=== PATIENT | male | born 1995 | race Caucasian/White ===

== ENCOUNTER 2017-05-02 11:32 | Observation (INO) | payer BC ==
[2017-05-02] MEDS ORDERED: Pantoprazole IV* 40 MG IV ONE (11:44)
[2017-05-02] MEDS ORDERED: NS 0.9% 1000 ML* 1,000 ML IV ONE (11:44)
[2017-05-02 12:13] LABS: ABS Basophils 0 10^3/ul (0-0.2); ABS Eosinophils 0 10^3/ul (0-0.6); ABS Lymphocytes 0.4 10^3/ul (1.0-4.8); ABS Neutrophils 12.6 10^3/ul (1.5-7.7); ABS Nucleated RBC 0 10^3/ul; Eosinophil % 0 % (0-6); Hematocrit 51 % (42-52); Hemoglobin 17.9 g/dl (14.0-18.0); Lymphocyte % 3.2 % (25-47); Mean Corpuscular HGB Conc 35 g/dl (31-36); Mean Corpuscular Hemoglobin 29 pg (27-31); Mean Corpuscular Volume 83 fL (80-94); Mean Platelet Volume 9 um3 (7.4-10.4); Nucleated Red Blood Cells % 0; Platelet Count 230 10^3/ul (150-450); Red Blood Count 6.16 10^6/ul (4.0-5.4); Red Cell Distribution Width 13 % (10.5-15)
[2017-05-02 12:22] LABS: INR 1.14 (0.77-1.02)
--- NOTE | 2017-05-02 13:16 | RAD ---
INDICATION: Right upper quadrant pain and vomiting. COMPARISON: There are no prior studies available for comparison. TECHNIQUE: Multiple real-time images of the right upper quadrant were obtained. FINDINGS: The gallbladder appear normal. No gallbladder wall thickening or pericholecystic fluid is present. No intra or extrahepatic ductal distention is present. The common bile duct measured 0.2 cm in diameter. The liver is normal in size without significant focal abnormality. The pancreas is obscured by overlying bowel gas. The right kidney is normal in size without evidence for hydronephrosis. IMPRESSION: NEGATIVE EXAM.
[2017-05-02] MEDS ORDERED: Iohexol 300* (CONTRAST) 10 ML SDV IV ONE (13:25)
[2017-05-02] MEDS ORDERED: NS 0.9% 1000 ML* 1,000 ML BOLUS SCH (13:45)
--- NOTE | 2017-05-02 14:43 | RAD ---
INDICATION: Right upper quadrant, epigastric pain, vomiting coffee-ground. COMPARISON: Comparison is made with a prior right upper quadrant ultrasound from May 02, 2017. TECHNIQUE: A CT scan of the abdomen and pelvis was performed with intravenous and oral contrast following intravenous injection of 133 ml of Omnipaque 300 nonionic contrast. Contiguous axial sections were obtained from the lung bases through the symphysis pubis. Images were reconstructed in the coronal and sagittal planes. FINDINGS: The lung bases are clear. No pleural effusion is present. The liver is normal in size and decreased in attenuation consistent with fatty infiltration. No significant focal hepatic abnormalities are seen. No calcified gallstones are seen. No gallbladder wall thickening is noted. The pancreas appears to be within normal limits. The spleen is mildly enlarged without focal abnormality. The kidneys and adrenal glands are normal in size. No hydronephrosis is seen. No significant focal renal abnormality is seen. The aorta is normal in caliber and demonstrates homogeneous contrast opacification. No significant enlarged retroperitoneal lymph nodes are seen. There is a small hiatal hernia. The stomach, small and large bowel appear nondistended. The appendix is within normal limits. There are few diverticuli within the sigmoid colon. There is no evidence for diverticulitis or colitis. There is fluid present throughout the small bowel suggestive of a diarrheal illness. No free intraperitoneal air or fluid is seen. There is a small oval-shaped sclerotic lesion within the right femoral neck, likely incidental. No other focal osseous abnormalities are seen. IMPRESSION: 1. INCREASED FLUID WITHIN THE SMALL BOWEL SUGGESTIVE OF A DIARRHEAL ILLNESS. 2. HEPATIC STEATOSIS. 3. SMALL HIATAL HERNIA.
[2017-05-02 14:55] LABS: Urine Appearance Clear; Urine Blood 1+ (Negative); Urine Color Yellow; Urine Ketones Negative (Negative); Urine Protein Negative (Negative); Urine Specific Gravity > 1.060 (1.010-1.030); Urine Urobilinogen Negative (Negative)
[2017-05-02] MEDS ORDERED: Pantoprazole IV* 80 MG in NS 0.9% 250 ML* 250 ML IV SCH (15:30)
[2017-05-02] MEDS ORDERED: Acetaminophen TAB* 325 MG PO PRN (15:54)
[2017-05-02] MEDS ORDERED: Midazolam* 1 MG/ML 10 ML VIAL (10 MG) ONE (16:41)
[2017-05-02] MEDS ORDERED: Meperidine SYRINGE* 50 MG/ML ONE (16:56)
[2017-05-02] MEDS ORDERED: Meperidine Carpuject* 75 MG/ML CARPUJECT SYRINGE IV ONE (18:00)
[2017-05-02] MEDS: Pantoprazole IV* 80 MG in NS 0.9% 250 ML* 250 ML IVPB SCH (18:17)
--- NOTE | 2017-05-02 18:43 | HP ---
CC: Dr. Barbosa * HISTORY AND PHYSICAL: DATE OF ADMISSION: 05/02/17 PRIMARY CARE PROVIDER: None. CHIEF COMPLAINT: Nausea, vomiting with coffee-ground. 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 The patient stated that initially he was vomiting remnants of his food that he ingested prior to as well as later on his vomitus became more bilious. At approximately 4 a.m. today in the morning, he started vomiting coffee- ground. Together with the vomiting, he had abdominal cramping and diarrhea. He stated that he had "the busiest night he has ever had." He came into the hospital with coffee-ground emesis. He is going to be placed on overnight observation with a diagnosis of most likely upper GI bleed. I suspect that it may be due to Sonam- De Anda tear or gastritis. Currently, the patient has no more abdominal cramping and his last loose bowel movement was approximately 8 hours ago. PAST MEDICAL HISTORY: None. MEDICATIONS: None. ALLERGIES: None. FAMILY HISTORY: Reviewed and noncontributory. SOCIAL HISTORY: The patient denies any tobacco or drug use. He drinks alcohol occasionally. He is a college student. Currently, staying with his mother for the holidays. His mother would be also his surrogate decision making person and her name is Catarina Boyce. REVIEW OF SYSTEMS: Please see history of present illness, in addition to the above mentioned, the patient stated that he does not remember any sick contacts. He denies any fevers. His abdominal cramping is resolving and his diarrhea also appears to have resolved. All the remaining 12 systems were reviewed with the patient and were otherwise negative. PHYSICAL EXAMINATION GENERAL: The patient is a very pleasant 21-year-old male, who is in no acute distress. Alert, awake, and oriented x3. VITAL SIGNS: Blood pressure of 128/87, heart rate of 87 and regular, respiratory rate 18, O2 saturation 98% on room air, temperature 97.2. HEENT: Head: Atraumatic, normocephalic. Eyes: Pupils are equal, reactive to light and accommodation. Oropharynx clear. Mucosa moist. NECK: Supple. No JVD. No bruits bilaterally. RESPIRATORY: Clear to auscultation bilaterally. CARDIOVASCULAR: Regular rate and rhythm, no murmur. ABDOMEN: Soft, nontender. Bowel sounds are present in all 4 quadrants. EXTREMITIES: There is no edema. Pulses are +2 bilaterally. No clubbing or cyanosis. NEURO: Speech clear. Cranial nerves II through XII grossly intact. Motor strength is 5/5 bilaterally. PSYCHIATRIC: Oriented x3 with no evidence of anxiety or depression. SKIN: On evaluation of the skin, no ecchymotic areas or rashes noted. DIAGNOSTIC STUDIES/LAB DATA: Show white blood cell count was 14.0, hemoglobin was 17.9, hematocrit was 51, and platelets of 230. Sodium was 133, potassium 3.9, chloride 97, carbon dioxide 25, BUN 22, creatinine 1.17. Liver function tests were unremarkable. C-reactive protein was 99. Initial lactic acid was 3.3, it was checked 2 hours later, it was down to 1.8. Urinalysis was grossly unremarkable apart from high specific gravity of above 1.060. Abdomen and pelvis CT obtained today, impression: "Increased fluid within the small bowel suggestive of diarrheal illness. Hepatic steatosis. Small hiatal hernia." ASSESSMENT AND PLAN: 1. Upper gastrointestinal bleed in a patient who has had what appears to be gastrointestinal virus. At this point, the patient is going to be placed on overnight observation. Protonix drip is going to be instituted and the patient is going to be evaluated by Gastroenterology for possible upper endoscopy today. At this point, the differential includes likely gastritis or Sonam- De Anda tear. 2. For DVT prophylaxis, the patient is at low risk and ambulation is going to be encouraged. 3. The patient's code status is full and his surrogate is his mother. TIME SPENT: Approximately 55 minutes was spent on the patient's admission, more than half of that time was spent [id number] with the patient during the interview, physical exam. [id number]/[facility] #: [id number] [facility] SYSTEM[facility]
[2017-05-02 19:52] LABS: ABS Basophils 0.1 10^3/ul (0-0.2); ABS Eosinophils 0.1 10^3/ul (0-0.6); ABS Lymphocytes 1.3 10^3/ul (1.0-4.8); ABS Monocytes 0.7 10^3/ul (0-0.8); ABS Neutrophils 6.7 10^3/ul (1.5-7.7); ABS Nucleated RBC 0.01 10^3/ul; Eosinophil % 0.6 % (0-6); Hematocrit 43 % (42-52); Hemoglobin 14.9 g/dl (14.0-18.0); Lymphocyte % 14.4 % (25-47); Mean Corpuscular HGB Conc 35 g/dl (31-36); Mean Corpuscular Hemoglobin 29 pg (27-31); Mean Corpuscular Volume 83 fL (80-94); Mean Platelet Volume 9 um3 (7.4-10.4); Nucleated Red Blood Cells % 0.1; Platelet Count 171 10^3/ul (150-450); Red Blood Count 5.13 10^6/ul (4.0-5.4); Red Cell Distribution Width 13 % (10.5-15); White Blood Count 8.8 10^3/ul (3.5-10.8)
[2017-05-02] MEDS: NS 0.9% 1000 ML* 1,000 ML IV SCH (20:06)
--- NOTE | 2017-05-02 22:37 | ED ---
Qamar Iraheta Stephanie, scribed for Soraida Butler MD on 05/02/17 at 1236 . Abdominal Pain/Male - HPI Summary HPI Summary: Pt is a 21 y/o M presenting to the ED with N/V/D that began yesterday 05/01/17, after consuming [employer] fast food. Pt went out for [employer] and states he drank alcohol, but not to excess and he did not feel hungover in the am. Pt and girlfriend consumed [employer] on Day and pt began feeling nauseous a few hours after lunch. Pt's girlfriend did not have GI sxs, but did not have the same sandwich as pt. Pt was vomiting every 20 minutes throughout the night. The vomit began clear and then turned blackish and brownish. Pt reports diarrhea as clear and then eventually turned green. Symptoms include diaphoresis and pain in stomach/abdomen reported as 7 in severity. Pt denies SOB, sore throat, cough, and swelling in legs. Pt has not gotten his flu shot this season. Pt went to [address] [place] [address] and received 2 ODT Zofran anti -nausea medication and was referred by [facility] for further evaluation. Per PA at [facility] pt's heart rate was 130 at [facility]. Pt describes pain as a burning ball in stomach currently reported as a 5 in severity. He denies blood in diarrhea. Pt has never had GI bleeding in the past. States he take ibuprofen occassionally, but none yesterday or today, and "not excessive". His blood pressure is currently 137/92 and heart rate is 100 BMP. - History of Current Complaint Chief Complaint: EDNauseaVomitDiarrh Stated Complaint: VOMITING BLOOD/ABD PAIN Time Seen by Provider: 05/02/17 11:43 Hx Obtained From: Patient, Family/Maturity Checker - Girlfriend and mother Onset/Duration: Lasting Days, Still Present Timing: Intermittent, Lasting Minutes Severity Initially: Severe Severity Currently: Moderate Pain Intensity: 6 Pain Scale Used: 0-10 Numeric Location: Diffuse Radiates: No Character: Sharp Aggravating Factor(s): Nothing Alleviating Factor(s): Nothing, Vomiting, Medications Associated Signs And Symptoms: Positive: Vomiting, Diarrhea - Allergies/Home Medications Allergies/Adverse Reactions: Allergies Allergy/AdvReac Type Severity Reaction Status Date / Time No Known Allergies Allergy Unverified 05/02/17 11:50 Home Medications: Home Medications NK [No Home Medications Reported] 05/02/17 [History Confirmed 05/02/17] PMH/Surg Hx/FS Hx/Imm Hx Previously Healthy: Yes Sensory History: Denies: Hx Vision Problem Opthamlomology History: Denies: Hx Legally Blind EENT History: Denies: Hx Deafness - Surgical History Surgery Procedure, Year, and Place: None Infectious Disease History: No Infectious Disease History: Denies: Traveled Outside the [place] in Last 30 Days - Family History Known Family History: Positive: Other - no hx ulcers - Social History Occupation: Employed Part-time Lives: With Family Alcohol Use: Occasionally Review of Systems Positive: Skin Diaphoresis. Negative: Fever Negative: Sore Throat Cardiovascular: Negative Negative: Shortness Of Breath, Cough Positive: Abdominal Pain, Vomiting, Diarrhea, Nausea Positive: other - Negative: blood in stool Negative: Edema Skin: Negative Neurological: Negative Psychological: Normal All Other Systems Reviewed And Are Negative: Yes Physical Exam - Summary Physical Exam Summary: Appearance: Ill-appearing, moderate pain distress, Well-nourished Skin: Warm, color reflects adequate perfusion Head: Normal Head/Face inspection Eyes: Conjunctiva clear ENT: Normal inspection Neck: Supple, no nodes, no JVD. Respiratory: Lungs clear, Normal breath sounds, no respiratory distress Cardio: RRR, No murmur, pulses normal, brisk capillary refill Abdomen: soft, epigastric and RUQ tenderness, no masses, no organomegaly, no peritoneal signs Bowel sounds: present Musculoskeletal: Strength Intact/ ROM intact. No calf tenderness. No edema. Neuro: Alert, muscle tone normal, facial symmetry, speech normal, sensory/motor intact Psychological: Normal Triage Information Reviewed: Yes Vital Signs On Initial Exam: Initial Vitals Temp Pulse Resp BP Pulse Ox 97.2 F 108 20 134/85 98 05/02/17 11:45 05/02/17 11:45 05/02/17 11:45 05/02/17 11:45 05/02/17 11:45 Vital Signs Reviewed: Yes Diagnostics - Vital Signs Vital Signs Temp Pulse Resp BP Pulse Ox 05/02/17 11:45 97.2 F 108 20 134/85 98 - Laboratory Lab Results: Lab Results 05/02/17 05/02/17 Range/Units 12:05 12:05 WBC 14.0 H (3.5-10.8) 10^3/ul RBC 6.16 H (4.0-5.4) 10^6/ul Hgb 17.9 (14.0-18.0) g/dl Hct 51 (42-52) % MCV 83 (80-94) fL MCH 29 (27-31) pg MCHC 35 (31-36) g/dl RDW 13 (10.5-15) % Plt Count 230 (150-450) 10^3/ul MPV 9 (7.4-10.4) um3 Neut % (Auto) 89.6 H (38-83) % Lymph % (Auto) 3.2 L (25-47) % [place] % (Auto) 6.9 (1-9) % Eos % (Auto) 0 (0-6) % Baso % (Auto) 0.3 (0-2) % Absolute Neuts (auto) 12.6 H (1.5-7.7) 10^3/ul Absolute Lymphs (auto) 0.4 L (1.0-4.8) 10^3/ul Absolute Monos (auto) 1.0 H (0-0.8) 10^3/ul Absolute Eos (auto) 0 (0-0.6) 10^3/ul Absolute Basos (auto) 0 (0-0.2) 10^3/ul Absolute Nucleated RBC 0 10^3/ul Nucleated RBC % 0 INR (Anticoag Therapy) 1.14 H (0.77-1.02) APTT 34.0 (26.0-36.3) seconds Result Diagrams: 05/02/17 19:49 05/02/17 12:05 Lab Statement: Any lab studies that have been ordered have been reviewed, and results considered in the medical decision making process. - CT Abd/Pelvis CT Interpretation: No Acute Changes CT Interpretation Completed By: Radiologist - 1. INCREASED FLUID WITHIN THE SMALL BOWEL SUGGESTIVE OF A DIARRHEAL ILLNESS. 2. HEPATIC STEATOSIS. 3. SMALL HIATAL - Ultrasound No standard instances Ultrasound Interpretation: No Acute Changes Ultrasound Interpretation Completed By: Radiologist - Abdomen US: NEGATIVE EXAM. Re-Evaluation - Re-Evaluation First Eval Re-Evaluation Time: 15:38 - ED physician discusses plan with patient. ED physician will order a repeat CBC. Change: Improved Abdominal Pain Fem Course/Dx - Course Course Of Treatment: At this time (15:01) nurse shows him coffee ground emesis and it is sent to lab. ED physician discusses plan with patient. Pt will be admitted for observation. Discusses CT abd/pel results. Initial h/h shows that the pt is not anemic. Not orthostatic. Given protonix IV drip in ED. Will be admitted. Discussed with Dr. Barbosa, who will do upper endoscopy today. Stool will be sent for diagnostic studies. - Diagnoses Differential Diagnosis/HQI/PQRI: Bowel Obstruction, Diverticulitis, Gall Bladder Disease, Peptic Ulcer Disease, Other - food poisoning, gastritis, Sonam De Anda tear Provider Diagnoses: Coffee ground emesis, Elevated lactic acid level - Provider Notifications Discussed Care Of Patient With: Dave Barbosa Time Discussed With Above Provider: 15:10 Instructed by Provider To: Admit As Observation - Critical Care Time Critical Care Time: 30-74 min - 30 min Discharge - Discharge Plan Condition: Stable Disposition: ADMITTED TO [facility] documentation as recorded by the Qamar reinoso Stephanie accurately reflects the service I personally performed and the decisions made by , Soraida Butler MD.
--- NOTE | 2017-05-02 23:02 | CONS ---
GASTROLOGY CONSULTATION: DATE OF CONSULT: 05/02/17 CONSULTING PHYSICIAN: Soraida Butler MD (Emergency Room). REASON FOR CONSULT: Hematemesis beginning 3 hours after a fast food meal. 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 Around 3 a.m., he saw some dark material in the emesis and did not know that probably represented blood. He began having some loose stools. He continued to vomit today and went to [facility] and was referred to the emergency room. Here after a couple of hours, he did have a large emesis possibly 700 cc and there appeared to be some coffee-ground material. He appeared stable from a cardiopulmonary point of view. He has a history of heartburn which he tends to just ignore as it will go away after half an hour. He says he did have much to drink on 's evening. His solid food intake was . He was, however, not feeling hungover the next morning and said he was hungry and starving. When his girlfriend purchased a burger from the [employer] which she ate quickly. No one else had the same menu. PAST MEDICAL HISTORY: Generally negative. SOCIAL HISTORY: He is from [place]. He does have marijuana fairly often. REVIEW OF SYSTEMS: No history of palpitations, syncope, cardiac disease, valvular disease. He had Dr. Monzon through age 20 and there were no major illnesses. There were no GI illnesses treated by Dr. Monzon. PHYSICAL EXAM: He is a healthy-appearing young man in no overt distress at this time. He is alert, eyes open. Conversant and seems to be a reliable historian with his mother not correcting any of his statements. HEENT exam is unremarkable. His lungs are clear. The abdomen is mildly obese, soft, and nontender. Rectal: Deferred. DIAGNOSTIC STUDIES/LAB DATA: Imaging workup in the ER, no suspicious abnormalities. IMPRESSION: This 21-year-old man likely overate. With a background of gastroesophageal reflux disease is predominant issue setting off this episode. Food poisoning cannot be ruled out, but cannot be ruled in definitively either. Upper endoscopy should hopefully give a hand to this what is underlying situation is and provide some prognostic information for whatever bleeding has occurred. [id number]/[facility] #: [id number] [facility] MANHATTANDionte
[2017-05-03] MEDS: Pantoprazole IV* 80 MG in NS 0.9% 250 ML* 250 ML IVPB SCH (02:26)
--- NOTE | 2017-05-03 02:58 | PRO ---
DATE: 05/02/17 - ROOM #R10 REFERRING PHYSICIAN: Dr. Soraida Butler, Emergency Room * PROCEDURE: Upper gastrointestinal endoscopy and CLOtest. 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 He was hungry prior to consuming them. There has been no fever. A complete workup in the ER did show fluid filled loops of bowel on CT scan. He was originally seen at [facility]. ENDOSCOPIST: Dr. aBrbosa. MEDICATIONS: Midazolam 16, meperidine 125 that he is being arousable and conversant throughout, though calm and without any gagging or paradoxical resistance to the exam. He was quite flaccid and cooperative, though minimally sedated in a formal since. FINDINGS: He is a tall, large-framed young man, in no distress. EGD: Larynx - not seen. Esophagus - easily entered. The mucosa is normal in the upper and mid esophagus. There is some erythema and granular change about 36 to 37.5 where the squamocolumnar junction is located. There is some minimal erosions at 2 and 4 o'clock orientation, though no formal Sonam-De Anda per se. There was no active bleeding. There was a moderate hiatal hernia with the hiatus at 40, which was quite lax, though given the total absence of gagging, there was no fundic prolapse. Stomach - green fluid approximately 300 cc. Mucosa appears normal in the fundus , body, and antrum. There are no erosions or chronic changes. There was no blood seen. A CLOtest taken in gastric and greater curvature. Duodenum - the pylorus, bulb and second through fourth portions appear normal. IMPRESSION: 1. Moderate hiatal hernia - significant given a self described poor diet. 2. Minimal Sonam-De Anda tear or exacerbation of mild underlying erosive gastroesophageal reflux disease. 3. Gastroesophageal reflux disease - probably the major underlying issue, though cannot rule out a minor toxigenic food poisoning event or infection. [id number]/[facility] #: [id number] [facility]
[2017-05-03] MEDS: NS 0.9% 1000 ML* 1,000 ML IV SCH (04:01)
[2017-05-03 07:51] VITALS: BP 128/61
[2017-05-03 08:27] LABS: ABS Basophils 0 10^3/ul (0-0.2); ABS Eosinophils 0.1 10^3/ul (0-0.6); ABS Lymphocytes 1.5 10^3/ul (1.0-4.8); ABS Monocytes 0.7 10^3/ul (0-0.8); ABS Nucleated RBC 0 10^3/ul; Eosinophil % 1.5 % (0-6); Hematocrit 43 % (42-52); Hemoglobin 14.7 g/dl (14.0-18.0); Lymphocyte % 20.8 % (25-47); Mean Corpuscular HGB Conc 34 g/dl (31-36); Mean Corpuscular Hemoglobin 29 pg (27-31); Mean Corpuscular Volume 84 fL (80-94); Mean Platelet Volume 9 um3 (7.4-10.4); Nucleated Red Blood Cells % 0; Platelet Count 162 10^3/ul (150-450); Red Blood Count 5.07 10^6/ul (4.0-5.4); Red Cell Distribution Width 13 % (10.5-15); White Blood Count 7.4 10^3/ul (3.5-10.8)
--- NOTE | 2017-05-03 11:11 | DS ---
CC: Dr. Barbosa * DISCHARGE SUMMARY: DATE OF ADMISSION: 05/02/17 DATE OF DISCHARGE: 05/03/17 PRIMARY CARE PROVIDER: None. DISCHARGE DIAGNOSES: 1. Acute upper gastrointestinal bleed due to erosive gastritis as well as mild Sonam-De Anda tear. 2. Moderate hiatal hernia. 3. Nausea, vomiting, and diarrhea likely due to viral gastroenteritis. CONSULTATIONS DURING THE HOSPITAL STAY: Included Dr. Barbosa from Gastroenterology. PROCEDURES: Included upper endoscopy performed by Dr. Barbosa on 05/02/17, which showed impression "moderate hiatal hernia significant given as described poor diet. Minimal Sonam-De Anda tear or exacerbation of mild underlying erosive gastroesophageal reflux disease. Gastroesophageal reflux disease probably the major underlying issue, though cannot rule out a minor toxigenic food poisoning event or infection." STUDIES PERFORMED DURING THE HOSPITAL STAY: Included: On 05/03/17, white blood cell count of 7.4, hemoglobin 14.7, hematocrit of 43, and platelets of 162. CT of abdomen and pelvis obtained on 05/02/17, impression: "Increased fluid within the small bowel, suggestive of diarrhea illness. Hepatic steatosis. 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 He came into the ED after he started having coffee-ground emesis. Patient was placed on overnight observation and an upper endoscopy was performed by Dr. Barbosa. The upper endoscopy showed minimal Sonam-De Anda tear as well as erosive gastritis. Luther did very well overnight. She is tolerating soft diet by the time of discharge. He is going to be placed on Prilosec 20 mg twice a day at discharge. Patient is recommended to follow up with the primary care provider of his choice within the next month. Recommendation of bland diet and lifestyle modifications to avoid problems with hiatal hernia symptomatology were discussed with the patient at discharge. PHYSICAL EXAMINATION AT DISCHARGE: Unchanged from admission. [id number]/[facility] #: [id number] [facility]ITAL[facility]
[2017-05-03 13:00] LABS: EGFR Non-African American 105.5 (>60)
== END 2017-05-03 10:45 | disposition home or self-care (01) ==
LOC: ED 11:32 → MED 15:45
PROVIDERS: ADMIT Internal Medicine; ATTEND Internal Medicine
PROC: 0DJ08ZZ Inspection of Upper Intestinal Tract, Via Natural or Artificial Opening Endoscopic (ICD-10-PCS; principal; 2017-05-02)
DX: K29.61 Other gastritis with bleeding (principal); K22.6 Gastro-esophageal laceration-hemorrhage syndrome; K44.9 Diaphragmatic hernia without obstruction or gangrene; R11.2 Nausea with vomiting, unspecified; R19.7 Diarrhea, unspecified
CPT/HCPCS: 36415; 74177; 76705; 80048; 80053; 80320; 81003; 81015; 82150; 82271; 82272; 83605; 83690; 83735; 85025; 85610; 85730; 86140; 87045; 87046; 87077; 87328; 87329; 87493; 87502; 87899; 96361; 96374; 96376; 99156; 99157; 99291; G0378; G0480; J2175; J2250; Q9967